=== PATIENT | female | born 1950 | race Caucasian/White ===

== ENCOUNTER 2020-08-01 10:54 | Emergency (ER) | payer MEDICARE ==
[2020-08-01 11:53] LABS: CORONAVIRUS COVID-19 NAA NEGATIVE (NEGATIVE)
--- NOTE | 2020-08-01 11:55 | EDM.PDOC ---
ED HPI GENERAL MEDICAL PROBLEM - General Chief Complaint: General Stated Complaint: COVID SYMPTOMS Time Seen by Provider: 08/01/20 11:35 Source of Information: Reports: Patient History Limitations: Reports: No Limitations - History of Present Illness INITIAL COMMENTS - FREE TEXT/NARRATIVE: 70-year-old female with gastroenteritis-like symptoms for the past 48 hours, started with nausea and vomiting. She had emesis fairly frequently yesterday, and developed diarrhea. She has not vomited this morning but watery diarrhea persists, she was a little worried about may be having Covid or food poisoning. No fevers or chills. No shortness of breath. Onset: Sudden (Symptoms started fairly suddenly around 16 hours ago) Associated Symptoms: Reports: Loss of Appetite, Malaise. Denies: Fever/Chills, Headaches - Related Data Allergies Allergy/AdvReac Type Severity Reaction Status Date / Time fluoxetine Allergy Rash Verified 08/01/20 11:33 naproxen Allergy Arrhythmias Verified 08/01/20 11:33 verapamil Allergy Tachycardia Verified 08/01/20 11:33 Home Meds: Home Meds Calcium Carbonate [Calcium] 500 mg PO DAILY 08/01/20 [History] Cetirizine [ZyrTEC] 10 mg PO DAILY 08/01/20 [History] Fluticasone Propionate [Flonase Allergy Relief] 2 spray INH DAILY 08/01/20 [History] Glucosamine [Glucosamine Sulfate] 1 tab PO DAILY 08/01/20 [History] Levothyroxine Sodium [Levothyroxine] 1 tab PO DAILY 08/01/20 [History] Simvastatin [Zocor] 40 mg PO BEDTIME 08/01/20 [History] carBAMazepine [Carbamazepine] 200 mg PO DAILY 08/01/20 [History] hydroCHLOROthiazide [Hydrochlorothiazide] 12.5 mg PO DAILY 08/01/20 [History] valACYclovir HCl [valACYclovir] 1,000 mg PO BID 08/01/20 [History] Past Medical History HEENT History: Reports: Impaired Vision Cardiovascular History: Reports: High Cholesterol, Hypertension 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 Denies: Fever, Chills HEENT: Reports: No Symptoms Respiratory: Denies: Shortness of Breath Cardiovascular: Denies: Chest Pain GI/Abdominal: Reports: Diarrhea, Nausea, Vomiting. 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 No: Tachycardia GI/Abdominal: Abnormal Bowel Sounds (Very decreased bowel sounds but no tenderness to palpation or guarding or rebound) Extremities: Normal Inspection. No: Pedal Edema Neurological: Alert, Oriented Psychiatric: Normal Affect, Normal Mood Course - Vital Signs Last Recorded V/S: Last Vital Signs Temp 97.5 F 08/01/20 11:36 Pulse 93 08/01/20 11:36 Resp 14 08/01/20 11:36 BP 121/73 08/01/20 11:36 Pulse Ox 98 08/01/20 11:36 - Orders/Labs/Meds Orders: Active Orders 24 hr Category Date Time Status Isolation [COMM] Stat Oth 08/01/20 11:05 Ordered Labs: Laboratory Tests 08/01/20 Range/Units 11:10 Influenza Type A RNA Negative (NEGATIVE) RSV RNA (INAAT) Negative (NEGATIVE) Influenza Type B RNA Negative (NEGATIVE) SARS-CoV-2 RNA ([facility]) Negative (NEGATIVE) - Re-Assessments/Exams Free Text/Narrative Re-Assessment/Exam: 08/01/20 11:54 A 4 Plex viral study was done at the patient's request. Results are pending. This is very likely viral gastroenteritis. 08/01/20 11:56 For Plex viral study was negative, patient was reassured and will increase diet and activity as tolerated, rechecking if worsening. Departure - Departure Time of Disposition: 12:07 Disposition: Home, Self-Care 01 Clinical Impression: Viral gastroenteritis - Discharge Information Instructions: Viral Gastroenteritis, Adult, [id number] Referrals: PCP,None [Primary Care Provider] - Forms: ED Department Discharge Care Plan Goals: Stay hydrated with frequent small amounts of fluid, increase diet and activity as tolerated and return anytime if worsening or concerns. Also considering rechecking in 3 to 4 days if not improving satisfactorily. Sepsis Event Note (ED) - Focused Exam Vital Signs: Vital Signs Temp Pulse Resp BP Pulse Ox 08/01/20 11:36 97.5 F 93 14 121/73 98 - My Orders Last 24 Hours: My Active Orders 08/01/20 11:05 Isolation [COMM] Stat - Assessment/Plan Last 24 Hours: My Active Orders 08/01/20 11:05 Isolation [COMM] Stat
== END 2020-08-01 12:06 | disposition home or self-care (01) ==
LOC: JP.ED 10:54
DX: A08.4 Viral intestinal infection, unspecified (principal); E78.00 Pure hypercholesterolemia, unspecified; I10 Essential (primary) hypertension; Z79.899 Other long term (current) drug therapy; Z20.822 Contact with and (suspected) exposure to COVID-19; Z88.8 Allergy status to other drugs, medicaments and biological substances
CPT/HCPCS: 0241U; 99284

== ENCOUNTER 2020-08-02 12:38 | Emergency (ER) | payer MEDICARE ==
--- NOTE | 2020-08-02 14:38 | EDM.PDOC ---
ED HPI GENERAL MEDICAL PROBLEM - General Chief Complaint: Gastrointestinal Problem Stated Complaint: VOMITTING/CHILLS ETC. SYMPTOMS WORSE THAN YESTERDA Time Seen by Provider: 08/02/20 14:25 Source of Information: Reports: Patient, Old Records History Limitations: Reports: No Limitations - History of Present Illness INITIAL COMMENTS - FREE TEXT/NARRATIVE: 70 yo female here with nausea and vomiting. Was seen here yesterday for this plus diarrhea. The diarrhea is now gone. No hematemesis or fever. Is slightly dizzy with standing. No abdominal distention. Was not sent home with anything for nausea from the ER with yesterday's visit. No known exposures. Onset: Gradual Onset Date: 08/01/20 Duration: Day(s): (1+), Waxing/Waning Location: Reports: Abdomen Quality: Reports: Other (no pain) Severity: Moderate Improves with: Reports: None Worsens with: Reports: Eating ( or drinking) Context: Reports: Other (See HPI) Associated Symptoms: Reports: Nausea/Vomiting. 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) (none) - Related Data Allergies Allergy/AdvReac Type Severity Reaction Status Date / Time fluoxetine Allergy Rash Verified 08/01/20 11:33 naproxen Allergy Arrhythmias Verified 08/01/20 11:33 verapamil Allergy Tachycardia Verified 08/01/20 11:33 Home Meds: Home Meds Calcium Carbonate [Calcium] 500 mg PO DAILY 08/01/20 [History] Cetirizine [ZyrTEC] 10 mg PO DAILY 08/01/20 [History] Fluticasone Propionate [Flonase Allergy Relief] 2 spray INH DAILY 08/01/20 [History] Glucosamine [Glucosamine Sulfate] 1 tab PO DAILY 08/01/20 [History] Levothyroxine Sodium [Levothyroxine] 1 tab PO DAILY 08/01/20 [History] Simvastatin [Zocor] 40 mg PO BEDTIME 08/01/20 [History] carBAMazepine [Carbamazepine] 200 mg PO DAILY 08/01/20 [History] hydroCHLOROthiazide [Hydrochlorothiazide] 12.5 mg PO DAILY 08/01/20 [History] valACYclovir HCl [valACYclovir] 1,000 mg PO BID PRN 08/01/20 [History] Ondansetron [Zofran ODT] 4 mg PO Q6H PRN #7 tab.dis 08/02/20 [Rx] Past Medical History HEENT History: Reports: Impaired Vision Cardiovascular History: Reports: High Cholesterol, Hypertension 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 Denies: Abdominal Pain, Black Stool, Bloody Stool, Constipation, Diarrhea (resolved), Distension, Hematemesis, Hematochezia, Melena : Reports: No Symptoms Musculoskeletal: Reports: No Symptoms Skin: Reports: No Symptoms Neurological: Reports: No Symptoms ED EXAM, GI/ABD - Physical Exam Exam: See Below Exam Limited By: No Limitations General Appearance: Alert, WD/WN, No Apparent Distress Eyes: Bilateral: Normal Appearance Ears: Normal External Exam, Normal Canal, Hearing Grossly Normal Nose: Normal Inspection, No Blood Throat/Mouth: Normal Inspection, Normal Lips, Normal Oropharynx, Normal Voice, No Airway Compromise Head: Atraumatic, Normocephalic Neck: Normal Inspection Respiratory/Chest: No Respiratory Distress, Lungs Clear, Normal Breath Sounds, No Accessory Muscle Use Cardiovascular: Regular Rate, Rhythm, No Edema GI/Abdominal Exam: Normal Bowel Sounds, Soft, Non-Tender, No Distention Back Exam: Normal Inspection. No: CVA Tenderness (R), CVA Tenderness (L) Extremities: Normal Inspection, Normal Range of Motion, Non-Tender, No Pedal Edema Neurological: Alert, Oriented, CN II-XII Intact, Normal Cognition, No Motor/Sensory Deficits Psychiatric: Normal Affect, Normal Mood Skin Exam: Warm, Dry, Intact, Normal Color, No Rash Course - Vital Signs Last Recorded V/S: Last Vital Signs Temp 36.6 C 08/02/20 14:54 Pulse 68 08/02/20 14:54 Resp 15 08/02/20 14:54 BP 136/82 08/02/20 14:54 Pulse Ox 98 08/02/20 14:54 Orthostatic Blood Pressure [ 114/80 Standing] Orthostatic Blood Pressure [ 131/77 Sitting] Orthostatic Blood Pressure [ 133/82 Supine] - Orders/Labs/Meds Orders: Active Orders 24 hr Category Date Time Status Orthostatic Vital Signs [RC] ASDIRECTED Care 08/02/20 14:33 Active Labs: Laboratory Tests 08/02/20 Range/Units 14:45 Sodium 144 (140-148) mmol/L Potassium 3.6 (3.6-5.2) mmol/L Chloride 106 (100-108) mmol/L Carbon Dioxide 29 (21-32) mmol/L Anion Gap 9.4 (5.0-14.0) mmol/L BUN 15 (7-18) mg/dL Creatinine 0.8 (0.6-1.0) mg/dL Est Cr Clr Drug Dosing 69.75 mL/min Estimated GFR (MDRD) > 60 (>60) Glucose 95 (74-106) mg/dL Calcium 8.9 (8.5-10.1) mg/dL Meds: Medications Discontinued Medications Generic Name Dose Route Start Last Admin Trade Name Freq PRN Reason Stop Dose Admin Ondansetron HCl 4 mg 08/02/20 14:33 08/02/20 14:49 Ondansetron 4 Mg Tab.Dis PO 08/02/20 14:34 4 mg ONETIME ONE Administration - Re-Assessments/Exams Free Text/Narrative Re-Assessment/Exam: 08/02/20 15:32 Feels a lot better after Zofran ODT Departure - Departure Time of Disposition: 15:32 Disposition: Home, Self-Care 01 Condition: Good Clinical Impression: Nausea and vomiting Qualifiers: Vomiting type: unspecified Vomiting Intractability: non-intractable Qualified Code(s): R11.2 - Nausea with vomiting, unspecified - Discharge Information *PRESCRIPTION DRUG MONITORING PROGRAM REVIEWED*: Not Applicable *COPY OF PRESCRIPTION DRUG MONITORING REPORT IN PATIENT EDUAR: Not Applicable Prescriptions: Ondansetron [Zofran ODT] 4 mg PO Q6H PRN #7 tab.dis PRN Reason: Nausea Instructions: Nausea and Vomiting, Adult, [id number] Referrals: PCP,None [Primary Care Provider] - Forms: ED Department Discharge Additional Instructions: Use Zofran every 6 hrs as needed for nausea control. Sip on a clear liquid like Gatorade to get rehydrated. Advance diet slowly as tolerated. Return as needed. Sepsis Event Note (ED) - Focused Exam Vital Signs: Vital Signs Temp Pulse Resp BP Pulse Ox 08/02/20 14:54 36.6 C 68 15 136/82 98 08/02/20 13:56 36.6 C 68 15 136/82 98 - My Orders Last 24 Hours: My Active Orders 08/02/20 14:33 Orthostatic Vital Signs [RC] ASDIRECTED - Assessment/Plan Last 24 Hours: My Active Orders 08/02/20 14:33 Orthostatic Vital Signs [RC] ASDIRECTED
[2020-08-02] MEDS: Ondansetron 4 MG Tab.DIS PO ONE (14:49)
== END 2020-08-02 16:00 | disposition home or self-care (01) ==
LOC: JP.ED 12:38
DX: R11.2 Nausea with vomiting, unspecified (principal); E78.00 Pure hypercholesterolemia, unspecified; I10 Essential (primary) hypertension; Z88.5 Allergy status to narcotic agent; Z79.899 Other long term (current) drug therapy
CPT/HCPCS: 36415; 80048; 99284; A9270; 99283